=== PATIENT | female | born 1990 | race Caucasian/White ===

== ENCOUNTER 2016-06-18 12:00 | Emergency (ER) | payer BC ==
[2016-06-18 14:48] VITALS: BP 132/79
--- NOTE | 2016-06-18 14:50 | UC ---
Ear Complaint HPI - HPI Summary HPI Summary: right ear feels "full", knows from past experience that this is the start of an ear infection. Gets them frequently. No fever, no vomiting, no ST or cough. NO injury to ear. - History of Current Complaint Chief Complaint: UCEar Stated Complaint: RIGHT EAR COMPLAINT Time Seen by Provider: 06/18/16 14:41 Hx Obtained From: Patient Hx Last Menstrual Period: 05/31/16 Onset/Duration: Gradual Onset Severity Initially: Mild Severity Currently: Mild Aggravating Factors: Nothing Alleviating Factors: Nothing Associated Signs/Symptoms: Positive: Hearing Loss - Allergies/Home Medications Allergies/Adverse Reactions: Allergies Allergy/AdvReac Type Severity Reaction Status Date / Time No Known Allergies Allergy Verified 06/18/16 14:48 PMH/Surg Hx/FS Hx/Imm Hx Previously Healthy: Yes - Surgical History Surgical History: Yes Surgery Procedure, Year, and Place: appy, tonsils - Family History Known Family History: Positive: Hypertension - Social History Occupation: Student Lives: With Family Alcohol Use: Rare Substance Use Type: None Smoking Status (MU): Heavy Every Day Tobacco Smoker Review of Systems Constitutional: Negative Skin: Negative Eyes: Negative ENT: Ear Ache - dull pressure and loss of hearing right Respiratory: Negative Cardiovascular: Negative Gastrointestinal: Negative Genitourinary: Negative Motor: Negative Neurovascular: Negative Musculoskeletal: Negative Neurological: Negative Psychological: Negative All Other Systems Reviewed And Are Negative: Yes Physical Exam Triage Information Reviewed: Yes Appearance: Well-Appearing, No Pain Distress, Well-Nourished Vital Signs: Initial Vital Signs Temp 98.9 F 06/18/16 14:40 Pulse 105 06/18/16 14:40 Resp 20 06/18/16 14:40 BP 132/79 06/18/16 14:40 Pulse Ox 98 06/18/16 14:40 Vital Signs Reviewed: Yes Eye Exam: Normal ENT: Positive: Hearing grossly normal, Pharynx normal, Nasal congestion, TM dull - right ear with fluid level; Respiratory Exam: Normal Cardiovascular Exam: Normal Musculoskeletal Exam: Normal Neurological Exam: Normal Psychological Exam: Normal Skin Exam: Normal Ear Complaint Course/Dx - Differential Dx/Diagnosis Differential Diagnosis/HQI/PQRI: Bronchitis, Otitis Externa, Otitis Media Provider Diagnoses: serous otitis Discharge - Discharge Plan Condition: Stable Disposition: HOME Prescriptions: Amoxicillin/Clavulanate TAB* [Augmentin TAB 875*] 875 mg PO BID #20 tab Oxymetazoline HCl [Afrin Nasal [place]] 0.05 % NA BID #1 spr Pseudoephedrine HCl [Sudafed 12 Hour] 120 mg PO BID PRN #20 tab PRN Reason: Congestion Patient Education Materials: Serous Otitis Media (ED) Referrals: Ezio Caceres MD [Primary Care Provider] -
== END 2016-06-18 14:52 | disposition home or self-care (01) ==
LOC: UCCORT 12:00
DX: H65.91 Unspecified nonsuppurative otitis media, right ear (principal); F17.210 Nicotine dependence, cigarettes, uncomplicated
CPT/HCPCS: 99202; G0463

== ENCOUNTER 2016-12-03 14:23 | Emergency (ER) | payer BC ==
[2016-12-03 16:14] VITALS: BP 123/71
--- NOTE | 2016-12-03 16:32 | UC ---
Complaint Female HPI - HPI Summary HPI Summary: Pt presents with c/o of vagina/labial itching. Pt was seen by BANKING REPRESENTATIVE provider on and 12/01. Pt had cervical biopsy on 11/29 and returned to fabrics and material cutter provider with c/o of labia ithching. Pt has history of genital herpes. Personal Banking Advisor provider prescribed valtrex X 7 days and diflucan X 1 day. Pt was tested for STD's, BV and vaginal yeast on 12/01 and awaiting test results. Pt denies any herpes lesion outbreaks, vaginal discharge and risk for STD exposure. Pt stated that she had improvement with labial itching after taking the diflucan but now labial itching has returned. - History Of Current Complaint Stated Complaint: PERSONAL Hx Obtained From: Patient Hx Last Menstrual Period: 11/02/16 ?: No Onset/Duration: Gradual Onset, Lasting Days, Still Present Timing: Constant Severity Initially: Mild Severity Currently: Mild Character: Dull, Burning Aggravating Factor(s): Urination Alleviating Factor(s): Meds - diflucan Associated Signs And Symptoms: Positive: Negative - Allergies/Home Medications Allergies/Adverse Reactions: Allergies Allergy/AdvReac Type Severity Reaction Status Date / Time No Known Allergies Allergy Verified 12/03/16 16:06 PMH/Surg Hx/FS Hx/Imm Hx Previously Healthy: Yes - Surgical History Surgical History: Yes Surgery Procedure, Year, and Place: appy, tonsils - Family History Known Family History: Positive: Hypertension - Social History Alcohol Use: None Substance Use Type: None Smoking Status (MU): Light Every Day Tobacco Smoker Type: Cigarettes Amount Used/How Often: 1/2 pack every 2 days Review of Systems Constitutional: Negative Skin: Other - pruritic Eyes: Negative ENT: Negative Respiratory: Negative Cardiovascular: Negative Gastrointestinal: Negative Genitourinary: Negative Motor: Negative Neurovascular: Negative Musculoskeletal: Negative Neurological: Negative Psychological: Negative All Other Systems Reviewed And Are Negative: Yes Physical Exam Triage Information Reviewed: Yes Appearance: Well-Appearing Vital Signs: Initial Vital Signs Temp 98.4 F 12/03/16 16:07 Pulse 84 12/03/16 16:07 Resp 16 12/03/16 16:07 BP 123/71 12/03/16 16:07 Pulse Ox 100 12/03/16 16:07 Vital Signs Reviewed: Yes Eye Exam: Normal Respiratory: Positive: No respiratory distress Musculoskeletal Exam: Normal Neurological Exam: Normal Psychological Exam: Normal Skin Exam: Normal - Additional Comments Pt declined pelvic exam. Complaint Female Dx - Differential Dx/Diagnosis Differential Diagnosis/HQI/PQRI: Sexually Transmitted Disease, Other - labial itching Provider Diagnoses: vaginal itching. Discharge - Discharge Plan Condition: Stable Disposition: HOME Prescriptions: Fluconazole 100 MG TAB* [Diflucan 100 MG TAB*] 100 mg PO DAILY #3 tab Patient Education Materials: Itchy Skin (ED) Referrals: Ezio Caceres MD [Primary Care Provider] - Additional Instructions: Please follow up with your BANKING REPRESENTATIVE provider or return to clinic.
== END 2016-12-03 16:40 | disposition home or self-care (01) ==
LOC: UCCORT 14:23
DX: L29.3 Anogenital pruritus, unspecified (principal); Z72.0 Tobacco use
CPT/HCPCS: 99212; G0463